=== PATIENT | male | born 1940 | race Caucasian/White ===

== ENCOUNTER → 2018-11-18 | Outpatient (CLI) | payer OTHER, BC ==
[~2018-11-18] MED LIST: ASPIR 8181 MG PO; CARVEDILOL3.125 MG PO; LASIX 80 MG TAB80 MG PO; LISINOPRIL2.5 MG PO; POTASSIUM20 PO; SPIRONOLACTONE25 M1 PO
== END ==
LOC: RAD 10:43
DX: J98.11 Atelectasis (principal); J90 Pleural effusion, not elsewhere classified; I25.119 Atherosclerotic heart disease of native coronary artery with unspecified angina pectoris; I50.9 Heart failure, unspecified; I70.0 Atherosclerosis of aorta